=== PATIENT | male | born 1945 | race Caucasian/White ===

== ENCOUNTER 2016-06-11 09:24 | Day surgery (SDC) | payer OTHER ==
[~2016-06-11] VITALS: Ht 165.1 cm; Wt 70.2 kg
[2016-06-11] VITALS (8 sets, daily range): BP systolic 108–123; BP diastolic 53–69; PULSE 49–54; RESP 18; TEMP 97.6–98.3; O2SAT 100
[~2016-06-11 09:24] MED LIST: ALBU6.7H INH; AMIO200T PO; ASPI325T PO; CARV3.12 PO; FURO1TAB93 PO; LISI2.5T3 PO; MECL-62 PO; PLAV75TA PO; ROSU40 PO; VITA200017 PO
[2016-06-11] MEDS: NS 1000P @30 MLS/HR (KVO) IV SCH (10:00)
[2016-06-11] MEDS ORDERED: TRAZ100T4 PO (10:02)
[2016-06-11] MEDS ORDERED: METO25TA3 PO (10:02)
[2016-06-11] MEDS ORDERED: SPIR25TA PO (10:02)
[2016-06-11] MEDS ORDERED: AMIO200T PO (10:02)
[2016-06-11] MEDS ORDERED: ASPI325T PO (10:02)
[2016-06-11] MEDS ORDERED: ATOR1TAB18 PO (10:02)
[2016-06-11] MEDS ORDERED: FURO40TA PO (10:02)
[2016-06-11 10:06] LABS: AUTOMATED NEUTROPHIL # 5.9 TH/MM3 (1.8-7.7); BASOPHIL # 0.2 TH/MM3 (0-0.2); BASOPHIL % 2.2 % (0.0-2.0); EOSINOPHIL % 0.5 % (0.0-4.0); HEMATOCRIT 38.9 % (39.0-51.0); HEMO FLAGS DIFF FINAL; LYMPH % 13.6 % (9.0-44.0); MEAN CELL VOLUME 85.6 FL (80.0-100.0); MEAN CORPUSCULAR HGB CONC 33.9 % (32.0-36.0); MONO % 6.8 % (0.0-8.0); NEUT % 76.9 % (16.0-70.0); PLATELET COUNT 216 TH/MM3 (150-450); RED BLOOD COUNT 4.55 MIL/MM3 (4.50-5.90); RED CELL DISTRIBUTION WIDTH 14.4 % (11.6-17.2); WHITE BLOOD COUNT 7.7 TH/MM3 (4.0-11.0)
[2016-06-11 10:15] LABS: APTT (PATIENT) 25.3 SEC (24.3-30.1); PROTHROMBIN TIME - PATIENT 11.1 SEC (9.8-11.6)
[2016-06-11 10:50] LABS: BICARBONATE 28.3 MEQ/L (21.0-32.0); POTASSIUM 3.4 MEQ/L (3.5-5.1)
[2016-06-11] MEDS ORDERED: HEPARIN-NS/PF INJ 500 ML ONE (11:45)
[2016-06-11] MEDS ORDERED: MIDAZOLAM HCL 2 MG/2 ML VIAL ONE (11:45)
[2016-06-11] MEDS ORDERED: SODIUM CHLOR 0.9% 1000 ML INJ 1,000 ML IV SCH (14:12)
[2016-06-11] MEDS ORDERED: MISC INFORMATION XX ONE (14:15)
[2016-06-11] MEDS ORDERED: SODIUM CHLORIDE 0.9% FLUSH 5 ML FLUSH IVF PRN (14:15)
[2016-06-11] MEDS ORDERED: IOHEXOL 350 MG/ML 100 ML BTL (for Cath Lab) OTHER ONE (14:40)
[2016-06-11] MEDS ORDERED: IOHEXOL 350 MG/ML 50 ML BTL (for Cath Lab) OTHER ONE (14:40)
--- NOTE | 2016-06-11 19:36 | EKG ---
Date Performed: 06/11/2016 Time Performed: 10:13:10 PTAGE: 70 years EKG: AV pacing Abnormal ECG PREVIOUS TRACING : 06/11/2016 10.12 Compared to prior tracing no significant change DOCTOR: Arya Díaz Interpretating Date/Time 06/11/2016 19:34:45
[2016-06-11] MEDS ORDERED: ATORVASTATIN 80 MG TAB PO SCH (21:00)
[2016-06-11] MEDS: SODIUM CHLORIDE 0.9% FLUSH 5 ML FLUSH IVF SCH (21:00)
[2016-06-12] VITALS (13 sets, daily range): BP systolic 102–121; BP diastolic 51–62; PULSE 49–64; RESP 16–18; TEMP 98–98.2; O2SAT 99–100
[2016-06-12 06:54] LABS: BASOPHIL # 0.2 TH/MM3 (0-0.2); BASOPHIL % 2.1 % (0.0-2.0); EOSINOPHIL % 0.4 % (0.0-4.0); HEMATOCRIT 35.4 % (39.0-51.0); HEMO FLAGS DIFF FINAL; LYMPH % 15.2 % (9.0-44.0); LYMPHOCYTE # 1.2 TH/MM3 (1.0-4.8); MEAN CELL VOLUME 85.5 FL (80.0-100.0); MEAN CORPUSCULAR HEMOGLOBIN 28.9 PG (27.0-34.0); MEAN CORPUSCULAR HGB CONC 33.7 % (32.0-36.0); MONO % 9.4 % (0.0-8.0); NEUT % 72.9 % (16.0-70.0); PLATELET COUNT 167 TH/MM3 (150-450); RED BLOOD COUNT 4.14 MIL/MM3 (4.50-5.90); RED CELL DISTRIBUTION WIDTH 14.7 % (11.6-17.2); WHITE BLOOD COUNT 8.2 TH/MM3 (4.0-11.0)
[2016-06-12 07:15] LABS: BICARBONATE 27.9 MEQ/L (21.0-32.0); POTASSIUM 3.4 MEQ/L (3.5-5.1)
[2016-06-12] MEDS: SODIUM CHLORIDE 0.9% FLUSH 5 ML FLUSH IVF SCH (08:14)
[2016-06-12] MEDS: NS 1000P @30 MLS/HR (KVO) IV SCH (08:24)
[2016-06-12] MEDS ORDERED: FUROSEMIDE 40 MG TAB PO SCH (09:00)
[2016-06-12] MEDS ORDERED: ASPIRIN 325 MG TAB PO SCH (09:00)
[2016-06-12] MEDS ORDERED: AMIODARONE 200 MG TAB PO SCH ×2 (09:00→21:00)
[2016-06-12] MEDS ORDERED: METOPROLOL TARTRATE 25 MG TAB PO SCH (09:00)
--- NOTE | 2016-06-12 11:29 | PD.CARD.PN ---
Subjective Subjective Remarks No chest pain, no shortness of breath Objective Medications Current Medications Medications (Trade) Dose Ordered Sig/[place] Route Start Time Stop Time Status Last Admin (NS 1000 ml Inj) 1,000 ml @ 30 mls/hr Q24H IV 06/11/16 10:00 06/11/16 10:00 (NS Flush) 2 ml BID IVF 06/11/16 21:00 06/12/16 08:14 (NS Flush) 2 ml UNSCH PRN IVF 06/11/16 14:15 (Aspirin) 325 mg DAILY PO 06/12/16 09:00 06/12/16 08:14 (Lipitor) 80 mg HS PO 06/11/16 21:00 06/11/16 20:36 (Lasix) 40 mg DAILY PO 06/12/16 09:00 06/12/16 08:14 (Lopressor) 12.5 mg DAILY PO 06/12/16 09:00 (Cordarone) 200 mg HS PO 06/12/16 21:00 Vital Signs / I&O Vital Signs Date Time Temp Pulse Resp B/P Pulse Ox O2 Delivery O2 Flow Rate FiO2 06/12/16 11:00 64 06/12/16 10:00 50 06/12/16 09:00 54 06/12/16 08:00 98.2 50 16 121/62 99 06/12/16 08:00 50 06/12/16 07:00 50 06/12/16 04:18 98.0 50 18 106/51 100 06/12/16 04:00 50 06/12/16 03:00 50 06/12/16 02:00 50 06/12/16 01:00 50 06/12/16 00:00 50 06/12/16 00:00 98.0 50 18 114/58 100 06/11/16 23:00 50 06/11/16 22:00 50 06/11/16 21:00 52 06/11/16 20:00 50 06/11/16 20:00 98.3 50 18 108/53 100 06/11/16 19:00 50 06/11/16 18:00 50 06/11/16 17:30 49 06/11/16 14:30 Room Air I/O 06/11/16 06/11/16 06/11/16 06/12/16 06/12/16 06/12/16 07:00 15:00 23:00 07:00 15:00 23:00 Intake Total 240 ml 480 ml Output Total 300 ml 600 ml Balance -60 ml -120 ml Intake Oral 240 ml 480 ml Output Urine Total 300 ml 600 ml # Bowel Movements 0 Physical Exam GENERAL: NAD, AAOx3 SKIN: Warm and dry. HEAD: Atraumatic. Normocephalic. EYES: Pupils equal and round. No scleral icterus. No injection or drainage. ENT: No nasal bleeding or discharge. Mucous membranes pink and moist. NECK: Trachea midline. No JVD. CARDIOVASCULAR: Regular rate and rhythm. RESPIRATORY: No accessory muscle use. Clear to auscultation. Breath sounds equal bilaterally. GASTROINTESTINAL: Abdomen soft, non-tender, nondistended. Hepatic and splenic margins not palpable. MUSCULOSKELETAL: Extremities without clubbing, cyanosis, or edema. No obvious deformities. Right femoral no hematoma/bruit. Left femoral no hematoma/bruit NEUROLOGICAL: Awake and alert. No obvious cranial nerve deficits. Motor grossly within normal limits. Five out of 5 muscle strength in the arms and legs. Normal speech. PSYCHIATRIC: Appropriate mood and affect; insight and judgment normal. Laboratory Laboratory Tests Test 06/12/16 05:25 White Blood Count 8.2 TH/MM3 Red Blood Count 4.14 MIL/MM3 Hemoglobin 12.0 GM/DL Hematocrit 35.4 % Mean Corpuscular Volume 85.5 FL Mean Corpuscular Hemoglobin 28.9 PG Mean Corpuscular Hemoglobin 33.7 % Concent Red Cell Distribution Width 14.7 % Platelet Count 167 TH/MM3 Mean Platelet Volume 8.1 FL Neutrophils (%) (Auto) 72.9 % Lymphocytes (%) (Auto) 15.2 % Monocytes (%) (Auto) 9.4 % Eosinophils (%) (Auto) 0.4 % Basophils (%) (Auto) 2.1 % Neutrophils # (Auto) 6.0 TH/MM3 Lymphocytes # (Auto) 1.2 TH/MM3 Monocytes # (Auto) 0.8 TH/MM3 Eosinophils # (Auto) 0.0 TH/MM3 Basophils # (Auto) 0.2 TH/MM3 CBC Comment DIFF FINAL Differential Comment Sodium Level 142 MEQ/L Potassium Level 3.4 MEQ/L Chloride Level 106 MEQ/L Carbon Dioxide Level 27.9 MEQ/L Anion Gap 8 MEQ/L Blood Urea Nitrogen 12 MG/DL Creatinine 1.24 MG/DL Estimat Glomerular Filtration 58 ML/MIN Rate Random Glucose 75 MG/DL Calcium Level 9.1 MG/DL Assessment and Plan Problem List: (1) Aortic stenosis (2) CAD (coronary artery disease) (3) Hx of CABG (4) PAD (peripheral artery disease) Assessment and Plan 1) Severe [place] CAD, patent bypass grafts, occluded [place] LCx which was never bypassed, not a candidate for [employer]ER 2) Moderate by catheterization (mean 30, YVETTE 1.2) 3) Mild drop in Hgb, will recheck and plan on discharge today 4) Follow up with Moy Turpin DO Jun 12, 2016 11:29
[2016-06-12] MEDS ORDERED: ACETAMINOPHEN 325 MG TAB PO PRN (12:00)
[2016-06-12 12:35] LABS: HEMATOCRIT 36.1 % (39.0-51.0); MEAN CELL VOLUME 85.5 FL (80.0-100.0); MEAN CORPUSCULAR HEMOGLOBIN 28.3 PG (27.0-34.0); MEAN CORPUSCULAR HGB CONC 33.1 % (32.0-36.0); PLATELET COUNT 165 TH/MM3 (150-450); RED BLOOD COUNT 4.22 MIL/MM3 (4.50-5.90); RED CELL DISTRIBUTION WIDTH 14.6 % (11.6-17.2); REVIEW FLAG FINAL; WHITE BLOOD COUNT 9.1 TH/MM3 (4.0-11.0)
--- NOTE | 2016-06-12 13:15 | HHI.DS ---
Discharge Summary Admission Date 06/11/16 Discharge Date: Jun 12, 2016 Admitting Diagnosis Previous ventricular tachycardia Hx CAD with CABG Work up for TAVR Moderate to Severe (1) Hx of CABG Diagnosis: Principal (2) PAD (peripheral artery disease) Diagnosis: Secondary (3) CAD (coronary artery disease) Diagnosis: Principal (4) Aortic stenosis Diagnosis: Principal Procedures LHC/RHC: Severe [place] CAD, patent bypass grafts, moderate (mean 30, YVETTE 1.2 ), please see dictation for full report CBC/BMP: 06/12/16 1225 06/12/16 0525 Significant Findings Laboratory Tests Test 06/11/16 06/12/16 06/12/16 09:54 05:25 12:25 Hematocrit 38.9 % 35.4 % 36.1 % (39.0-51.0) (39.0-51.0) (39.0-51.0) Neutrophils (%) (Auto) 76.9 % 72.9 % (16.0-70.0) (16.0-70.0) Basophils (%) (Auto) 2.2 % (0.0-2.0) 2.1 % (0.0-2.0) Potassium Level 3.4 MEQ/L 3.4 MEQ/L (3.5-5.1) (3.5-5.1) Estimat Glomerular Filtration 59 ML/MIN (>89) 58 ML/MIN (>89) Rate Red Blood Count 4.14 MIL/MM3 4.22 MIL/MM3 (4.50-5.90) (4.50-5.90) Hemoglobin 12.0 GM/DL 11.9 GM/DL (13.0-17.0) (13.0-17.0) Monocytes (%) (Auto) 9.4 % (0.0-8.0) Pt Condition on Discharge: Good Discharge Disposition: Discharge Home Discharge Instructions DIET: Follow Instructions for: Heart Healthy Diet Activities you can perform: See Additionl Instruction Additional Activity Instructio: No lifting more than 10 lbs for 3 days Moy Andre DO Jun 12, 2016 13:15
--- NOTE | 2016-06-13 08:43 | MA ---
cc: ELIOT MCKEON MD, VINCENT G. DO DATE 06/11/2016 PROCEDURE Left heart catheterization, right heart catheterization, bypass graft angiography, aortic valve evaluation, moderate sedation for 60 minutes. PREPROCEDURE DIAGNOSIS Ventricular tachycardia, moderate to severe aortic stenosis by echocardiogram, history of coronary artery bypass grafting. POSTPROCEDURE DIAGNOSIS Severe [place] coronary artery disease, patent bypass graft, occluded left circumflex stent. MEDICATIONS Fentanyl 50 mcg CONTRAST USED 110 cc FLUOROSCOPY 14 minutes SEDATION Moderate sedation 60 minutes ESTIMATED BLOOD LOSS 10 cc PROCEDURAL SUMMARY Bertin Reynoso is a pleasant 70-year-old male who had a history of ventricular tachycardia at another hospital and was placed on Amiodarone. It does not appear there was an ischemic evaluation done at that time. He has also had moderate to severe aortic stenosis and a consideration of possible TAVR. Because of this, it was felt that he should undergo cardiac catheterization. The risks, benefits and alternatives were explained to him and he consented as such. He was brought to the low cardiac catheterization lab and prepped in the usual sterile fashion. The right femoral artery was accessed using a micropuncture needle and placement of a micro-sheath. Because of difficulty with wire getting to the aorta, angiogram shot through this showing that I was most likely in the [place] femoral artery and yet a previous occlusion of the right iliac. The catheter was removed and pressure was held. At that time, I felt that the left femoral artery access should be use. The left femoral artery was accessed using a modified Seldinger technique and placement of a 5-[place] sheath. There was difficulty obtaining a femoral vein access until ultrasound guidance was used for left femoral vein access and placement of a 7-[place] sheath. A [place] catheter was then advanced into a wedge position. Hemodynamics and oxygen saturations were measured on pullback. [place] catheter was then removed. A JR-4 was advanced into the ascending aortic root over a J-wire. This was used for selective angiography of the right coronary artery which shows 100% occlusion proximally with right to right collaterals to the midportion and then a 100% occlusion passed this. A JR-4 was then used for selective angiography of the saphenous vein graft to PDA which is patent and retrogradely fills a posterolateral branch. The JR-4 was then used for selective angiography of a vein graft to a diagonal which is patent and has no significant disease. Retrograde flow from this does go into the mid LAD with competitive flow noted. The left coronary system also appears to supply some [id number] and possible [id number] collaterals. The JR-4 was then advanced into the left subclavian for selective angiography of the DIALLO to LAD. The DIALLO to the LAD is patent with no significant disease. There is noted competitive flow in the mid LAD from the flow from the diagonal bypass graft. JR-4 was then exchanged for a JL-4 for selective angiography of the left coronary system. Left main is relatively normal-appearing and bifurcates into an LAD and left circumflex. LAD gives off two diagonals before its occlusion at a mid LAD stent. The diagonals do provide [id number] collaterals to a small obtuse marginal. Left circumflex appears to be ostially occluded with a previous stent in mid section of it. Review of previous catheterization report from 2012, the patient did not have bypass graft to the circumflex and had severe disease of the [place] circumflex which was stented at that time. The JL-4 was then exchanged for an AL-1 and a straight wire was used across the aortic valve. AL-1 was then advanced into the left ventricle and then removed over a long J-wire. 5-[place] sheath was exchanged for a 6-[place] sheath. A dual-lumen [place] catheter was then advanced into the left ventricle. Both lumens were flushed and simultaneous LV and aortic pressures were measured. Pullback of the [place] catheter showed equalization of pressures. The [place] catheter was then removed over a J-wire. Both sheaths were removed with pressure held for hemostasis. The patient left the rn lab cardiovascularly stable. HEMODYNAMIC RESULTS Right atrium 3. Right ventricle 37/0. Right ventricular end-diastolic pressure 3. PA 32/10, mean 19. Wedge 18. Mean aortic valve gradient 30. Aortic valve area 1.23. IMPRESSIONS 1. Severe multivessel [place] coronary artery disease with total occlusion of RCA, total occlusion of LAD, total occlusion of left circumflex. 2. Patent bypass grafts including DIALLO to LAD, SVG to PDA, SVG to diagonal 3. Moderate aortic stenosis (mean gradient 30, aortic valve area 1.23) RECOMMENDATIONS 1. Mr. Reynoso appears to have patent grafts although his left circumflex was never bypassed. He underwent stenting in 2012 of the midportion of it. It appears now that it is ostially occluded. 2. Due to the left circumflex being an ostial occlusion and not acute, no intervention is offered at this time. He does have minimal collaterals from the left coronary system. Reviewing the films, I do not believe an option for intervention including PHYSICAL MEDICINE SPECIALIST would be achievable. 3. Aortic valve evaluation shows moderate aortic stenosis with a mean gradient of 30 and an aortic valve with area of 1.23. 4. He will be kept overnight and we will plan for discharge in the morning. 5. He will follow up with Dr. Mckeon in the near future. Thank you for allowing me to see Bertin Reynoso. If there are any questions, please do not hesitate to call. Moy Andre DO VGP/DJL /9:13 PM /8:27 AM
== END 2016-06-12 13:49 | disposition home or self-care (01) ==
LOC: HDOC 09:24 → HDIC 09:25 → HCIN 17:11 → HDOC 06-12 13:49
PROVIDERS: ATTEND Nuclear Medicine Nuclear Cardiology
DX: I25.10 Atherosclerotic heart disease of native coronary artery without angina pectoris (principal); I35.0 Nonrheumatic aortic (valve) stenosis; Z95.1 Presence of aortocoronary bypass graft; I47.2 Ventricular tachycardia; I73.9 Peripheral vascular disease, unspecified
CPT/HCPCS: 80048; 82810; 85025; 85027; 85610; 85730; 93005; 93457; C1769; C1893; J1644; J2250; J3010; J7030; Q9967